=== PATIENT | female | born 2000 | race African-American/Black ===

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

== ENCOUNTER 2021-02-08 17:21 | Emergency (ER) | payer OTHER | END 2021-02-08 17:36 | disposition left against medical advice (07) | LOC: ER 17:21 | DX: K08.89 Other specified disorders of teeth and supporting structures (principal); Z53.21 Procedure and treatment not carried out due to patient leaving prior to being seen by health care provider ==